=== PATIENT | male | born 1950 | race Caucasian/White ===

== ENCOUNTER → 2018-11-25 | Day surgery (SDC) | payer MEDICARE ==
[2018-11-20 12:47] LABS: BASOPHILS # (AUTO) 0.1 (0.0-0.1); BASOPHILS % 0.9 % (0.0-1.0); EOSINOPHILS # (AUTO) 0.3 (0.0-0.4); EOSINOPHILS % 3.5 % (0.0-6.0); HEMATOCRIT 42.7 % (38.2-49.6); HEMOGLOBIN 14.1 g/dL (14.0-18.0); LYMPHOCYTES # (AUTO) 2.1 (1.0-3.2); LYMPHOCYTES % 28.7 % (18.0-39.1); MEAN CORPUSCULAR HEMOGLOBIN 29.1 pg (28-32); MEAN CORPUSCULAR VOLUME 88.2 fL (81-99); MONOCYTES # (AUTO) 0.7 (0.2-0.8); MONOCYTES % 9.6 % (4.4-11.3); NEUTROPHILS # (AUTO) 4.2 (2.1-6.9); PLATELET COUNT 247 x10e3/uL (140-360); RED BLOOD COUNT 4.84 x10e6/uL (4.3-5.7); RED CELL DISTRIBUTION WIDTH 14.1 % (11.7-14.4)
[~2018-11-25] MED LIST: AMLODIPINE BESYL5 MG PO; ASPIRIN81 MG PO; ATORVASTATIN CA20 MG PO; BENZOCAINE/TETRACAINE/BUTAMBEN AERO SPRAY 56 GM CAN ONE; CLOPIDOGREL75 MG PO; FLOMAX0.4 MG PO; GLUCAGON FOR INJ 1 MG VIAL ONE; HYDROXYCHLOROQ200 MG PO; LEVOTHYROXINE100 MC1 PO; LIDOCAINE HCL 2% LOCAL INJ 5 ML SDV VIAL INJ ONE; METOPROLOL PO; PROPOFOL IV EMULSION 10 MG/ML 50 ML VIAL ONE; SERTRALINE HCL50 MG PO; ULTRAM50 MG PO
--- OUTSIDE RECORDS SUMMARY | 2018-11-25 07:42 | XMS REPORT ---
Author Author Zara Lo Organization e[employer] Address Unknown Phone Unavailable Care Team Providers Care Monitor Car Operator Name Role Phone Zara Lo CP Unavailable Allergies No Known Allergies Problems Problem Type Condition Code Onset Dates Condition Status Problem End stage renal disease N18.6 Active Problem CKD (chronic kidney disease) stage 1, GFR 90 ml/min or greater N18.1 Active Problem Rheumatoid arthritis without rheumatoid factor, unspecified ankle and foot M06.079 Active Medications Medication Code System Code Instructions Start Date End Date Status Dosage Hydroxychloroquine Sulfate [facility] 45410094084 200 MG Orally Once a day Active 2 tabs Results No Known Results Summary Purpose eClinicalWorks Submission
--- OUTSIDE RECORDS SUMMARY | 2018-11-25 07:42 | XMS REPORT ---
Author Author Zara Lo [facility] eClinicalWorks Address Unknown Phone Unavailable Care Team Providers Care Hammer Smith Name Role Phone Zara Lo CP Unavailable Allergies, Adverse Reactions, Alerts Substance Reaction Event Type N.K.D.A. Info Not Available Non Drug Allergy Problems Problem Type Condition Code Onset Dates Condition Status Assessment CKD (chronic kidney disease) stage 1, GFR 90 ml/min or greater N18.1 Active Assessment Pain, joint, multiple sites M25.50 Active Assessment Counseling NOS Z71.9 Active Problem End stage renal disease N18.6 Active Problem CKD (chronic kidney disease) stage 1, GFR 90 ml/min or greater N18.1 Active Problem Rheumatoid arthritis without rheumatoid factor, unspecified ankle and foot M06.079 Active Assessment Pain of left hand M79.642 Active Assessment Pain in right hand M79.641 Active Assessment Rheumatoid arthritis without rheumatoid factor, unspecified ankle and foot M06.079 Active Medications Medication Code System Code Instructions Start Date End Date Status Dosage Pantoprazole Sodium [facility] 84886263904 40 MG Orally Once a day Active 1 tablet Amlodipine Besylate ND 58727394847 2.5 MG Orally Once a day Active 1 tablet Tramadol HCl ND 16550839394 50 MG Orally bid July 03, 2018 Oct 31, 2018 Active 1 tablet as needed Hydroxychloroquine Sulfate ND 72663811794 200 MG Orally Once a day Active 2 tabs Levothyroxine Sodium ND 78397798582 100 MCG Orally Once a day Active 1 tablet on an empty stomach in the morning Atorvastatin Calcium ND 47817340567 40 MG Orally Once a day Active 1 tablet Glimepiride ND 24125987551 2 MG Orally Once a day Active 1 tablet with breakfast or the first main meal of the day Humulin 70/30 [facility] 98704421251 (70-30) 100 UNIT/ML Subcutaneous Active not defined Hydroxychloroquine Sulfate ND 84294841671 200 MG Orally Once a day Active 2 tabs Clopidogrel Bisulfate ND 63778059931 75 MG Orally Once a day Active 1 tablet Aspirin [facility] 14830459996 81 MG Orally Once a day Active 1 tablet Tamsulosin HCl [facility] 37882554057 0.4 MG Orally Once a day Active 1 capsule Metoprolol Succinate ER [facility] 03073897201 25 MG Orally Once a day Active 1 tablet Vital Signs Date/Time: July 03, 2018 Height 66 in Blood Pressure Diastolic 55 mm Hg Blood Pressure Systolic 113 mm Hg Weight 176.8 lbs Results No Known Results Summary Purpose eClinicalWorks Submission
--- OUTSIDE RECORDS SUMMARY | 2018-11-25 07:42 | XMS REPORT ---
Author Author Zara Lo [facility] eClinicalWorks Address Unknown Phone Unavailable Care Team Providers Care Route Salesman And Driver Name Role Phone Zara Lo CP Unavailable Allergies, Adverse Reactions, Alerts Substance Reaction Event Type N.K.D.A. Info Not Available Non Drug Allergy Problems Problem Type Condition Code Onset Dates Condition Status Assessment CKD (chronic kidney disease) stage 1, GFR 90 ml/min or greater N18.1 Active Problem End stage renal disease N18.6 Active Problem CKD (chronic kidney disease) stage 1, GFR 90 ml/min or greater N18.1 Active Problem Rheumatoid arthritis without rheumatoid factor, unspecified ankle and foot M06.079 Active Assessment Pain, joint, multiple sites M25.50 Active Assessment Counseling NOS Z71.9 Active Assessment Pain of left hand M79.642 Active Assessment Pain in right hand M79.641 Active Medications Medication Code System Code Instructions Start Date End Date Status Dosage Atorvastatin Calcium ND 88135182592 40 MG Orally Once a day Active 1 tablet Pantoprazole Sodium ND 24507621645 40 MG Orally Once a day Active 1 tablet Aspirin ND 35192175516 81 MG Orally Once a day Active 1 tablet Humulin 70/30 [facility] 72616725621 (70-30) 100 UNIT/ML Subcutaneous Active not defined Amlodipine Besylate ND 09568747503 2.5 MG Orally Once a day Active 1 tablet Glimepiride ND 39532927892 2 MG Orally Once a day Active 1 tablet with breakfast or the first main meal of the day Clopidogrel Bisulfate ND 32919240164 75 MG Orally Once a day Active 1 tablet PredniSONE ND 30386496212 5 mg Orally Once a day Nov 26, 2017 Active 1 tab(s) with food as needed Tamsulosin HCl ND 27872122674 0.4 MG Orally Once a day Active 1 capsule Levothyroxine Sodium ND 93091938297 100 MCG Orally Once a day Active 1 tablet on an empty stomach in the morning Metoprolol Succinate ER ND 13900605425 25 MG Orally Once a day Active 1 tablet Vital Signs Date/Time: Nov 26, 2017 Height 66 in Blood Pressure Diastolic 91 mm Hg Blood Pressure Systolic 149 mm Hg Weight 177.6 lbs Results No Known Results Summary Purpose eClinicalWorks Submission
--- OUTSIDE RECORDS SUMMARY | 2018-11-25 07:42 | XMS REPORT ---
Author Author Zara Lo Organization [employer] Address Unknown Phone Unavailable Care Team Providers Care Sales And Distribution Clerk Name Role Phone Zara Lo CP Unavailable Allergies No Known Allergies Problems Problem Type Condition Code Onset Dates Condition Status Problem End stage renal disease N18.6 Active Problem CKD (chronic kidney disease) stage 1, GFR 90 ml/min or greater N18.1 Active Problem Rheumatoid arthritis without rheumatoid factor, unspecified ankle and foot M06.079 Active Medications No Known Medications Results No Known Results Summary Purpose eClinicalWorks Submission
--- OUTSIDE RECORDS SUMMARY | 2018-11-25 07:42 | XMS REPORT | Continuity of Care Document ---
Author Author LimeTray Address Unknown Phone Unavailable Care Team Providers Care Pharmacology Associate Name Role Phone Qriket Information shipbeat Unavailable Unavailable Problems Problem Status Onset Date Classification Date Reported Comments Source End stage renal disease Active Problem 07/26/2018 Zara Najam CKD (chronic kidney disease) stage 1, GFR 90 ml/min or greater Active Diagnosis 07/26/2018 Zara Najam Rheumatoid arthritis without rheumatoid factor, unspecified ankle and foot Active Problem 07/26/2018 Zara Najam Pain, joint, multiple sites Active Diagnosis 07/26/2018 Zara Najam Counseling NOS Active Diagnosis 07/26/2018 Zara Najam Pain of left hand Active Diagnosis 07/26/2018 Zara Najam Pain in right hand Active Diagnosis 07/26/2018 Zara Najam Medications Medication Details Route Status Patient Instructions Ordering Provider Order Date Source Hydroxychloroquine Sulfate 2 tabs Orally Active 200 MG Orally Once a day [facility] 10/11/2018 Zara Najam Tramadol HCl 1 tablet as needed Orally Active 50 MG Orally bid [facility] 07/03/2018 Zara Najam Tramadol HCl 1 tablet as needed Orally Active 50 MG Orally bid [facility] 06/19/2018 Zara Najam PredniSONE 1 tab(s) with food as needed Orally Active 5 mg Orally Once a day [facility] 12/11/2017 Zara Najam Tramadol HCl 1 tablet as needed Orally Active 50 MG Orally bid [facility] 12/11/2017 Zara Najam Hydroxychloroquine Sulfate 2 tabs Orally Active 200 MG Orally Once a day [facility] 12/11/2017 Zara Najam PredniSONE 1 tab(s) with food as needed Orally Active 5 mg Orally Once a day [facility] 11/26/2017 Zara Najam Atorvastatin Calcium 1 tablet Orally Active 40 MG Orally Once a day [facility] Pantoprazole Sodium 1 tablet Orally Active 40 MG Orally Once a day [facility] Najam Aspirin 1 tablet Orally Active 81 MG Orally Once a day Erendira Zara Lo Humulin 70/30 not defined Subcutaneous Active (70-30) 100 UNIT/ML Subcutaneous Erendira Zara Lo Amlodipine Besylate 1 tablet Orally Active 2.5 MG Orally Once a day Erendira Zara Lo Glimepiride 1 tablet with breakfast or the first main meal of the day Orally Active 2 MG Orally Once a day Teresita Lo Clopidogrel Bisulfate 1 tablet Orally Active 75 MG Orally Once a day Erendira Zara Krishna Tamsulosin HCl 1 capsule Orally Active 0.4 MG Orally Once a day Erendira Zara Krishna Levothyroxine Sodium 1 tablet on an empty stomach in the morning Orally Active 100 MCG Orally Once a day Erendira Zara Krishna Metoprolol Succinate ER 1 tablet Orally Active 25 MG Orally Once a day Erendira Zara Krishna Hydroxychloroquine Sulfate 2 tabs Orally Active 200 MG Orally Once a day Erendira Zara Krishna Hydroxychloroquine Sulfate 2 tabs Orally Active 200 MG Orally Once a day Erendira Zara Lo Allergies, Adverse Reactions, Alerts Substance Category Reaction Severity Reaction type Status Date Reported Comments Source N.K.D.A. Adverse Reaction Info Not Available Adverse Reaction Active 07/03/2018 Zara Lo Immunizations No Data Provided for This Section Results No Data Provided for This Section Pathology Reports No Data Provided for This Section Diagnostic Reports No Data Provided for This Section Consultation Notes No Data Provided for This Section Discharge Summaries No Data Provided for This Section History and Physicals No Data Provided for This Section Vital Signs Vital Sign Value Date Comments Source Height 66 07/03/2018 Zara Najam Diastolic (mm Hg) 55 07/03/2018 Zara Najam Systolic (mm Hg) 113 07/03/2018 Zara Nablossomm Weight 176.8 07/03/2018 Zara Najam Height 66 02/19/2018 Zara Najam Diastolic (mm Hg) 64 02/19/2018 Zara Najam Systolic (mm Hg) 113 02/19/2018 Zara Nablossomm Weight 177.4 02/19/2018 Zara Najam Height 66 12/11/2017 Zara Najam Diastolic (mm Hg) 73 12/11/2017 Zara Najam Systolic (mm Hg) 129 12/11/2017 Zara Lo Weight 174.6 12/11/2017 Zara Najuan daniel Height 66 11/26/2017 Zara Nablossomm Diastolic (mm Hg) 91 11/26/2017 Zara Nablossomm Systolic (mm Hg) 149 11/26/2017 Zaraandreea Lo Weight 177.6 11/26/2017 Zara Lo Encounters No Data Provided for This Section Procedures No Data Provided for This Section Assessment and Plan No Data Provided for This Section Plan of Care No Data Provided for This Section Social History No Data Provided for This Section Family History No Data Provided for This Section Advance Directives No Data Provided for This Section Functional Status No Data Provided for This Section
--- OUTSIDE RECORDS SUMMARY | 2018-11-25 07:42 | XMS REPORT ---
Author Author Zara Lo [facility] eClinicalWorks Address Unknown Phone Unavailable Care Team Providers Care Senior Technical Business Analyst Name Role Phone Zara Lo CP Unavailable [...] Instructions Start Date End Date Status Dosage Humulin 70/[address] [facility] 21216747131 (70-30) 100 UNIT/ML Subcutaneous Active not defined Aspirin ND 14349286987 81 MG Orally Once a day Active 1 tablet Amlodipine Besylate ND 86065351357 2.5 MG Orally Once a day Active 1 tablet Pantoprazole Sodium ND 60823991371 40 MG Orally Once a day Active 1 tablet Glimepiride ND 87019523521 2 MG Orally Once a day Active 1 tablet with breakfast or the first main meal of the day Tamsulosin HCl ND 98247681068 0.4 MG Orally Once a day Active 1 capsule Hydroxychloroquine Sulfate ND 12311439152 200 MG Orally Once a day Active 2 tabs Atorvastatin Calcium ND 86248313886 40 MG Orally Once a day Active 1 tablet Levothyroxine Sodium ND 92001973814 100 MCG Orally Once a day Active 1 tablet on an empty stomach in the morning Metoprolol Succinate ER ND 26784887669 25 MG Orally Once a day Active 1 tablet Clopidogrel Bisulfate [facility] 00744484136 75 MG Orally Once a day Active 1 tablet Tramadol HCl [facility] 08639829397 50 MG Orally bid June 19, 2018 Active 1 tablet as needed Vital Signs Date/Time: Feb 19, 2018 Height 66 in Blood Pressure Diastolic 64 mm Hg Blood Pressure Systolic 113 mm Hg Weight 177.4 lbs Results No Known Results Summary Purpose eClinicalWorks Submission
--- OUTSIDE RECORDS SUMMARY | 2018-11-25 07:43 | XMS REPORT ---
Author Author Zara Lo [facility] eClinicalWorks Address Unknown Phone Unavailable Care Team Providers Care Regional Account Manager Name Role Phone Zara Lo CP Unavailable Allergies, Adverse Reactions, Alerts Substance Reaction Event Type N.K.D.A. Info Not Available Non Drug Allergy Problems Problem Type Condition Code Onset Dates Condition Status Assessment Counseling NOS Z71.9 Active Assessment CKD (chronic kidney disease) stage 1, GFR 90 ml/min or greater N18.1 Active Problem End stage renal disease N18.6 Active Problem CKD (chronic kidney disease) stage 1, GFR 90 ml/min or greater N18.1 Active Problem Rheumatoid arthritis without rheumatoid factor, unspecified ankle and foot M06.079 Active Assessment Pain in right hand M79.641 Active Assessment Pain, joint, multiple sites M25.50 Active Assessment Rheumatoid arthritis without rheumatoid factor, unspecified ankle and foot M06.079 Active Assessment Pain of left hand M79.642 Active Medications Medication Code System Code Instructions Start Date End Date Status Dosage Aspirin [facility] 26003175980 81 MG Orally Once a day Active 1 tablet Glimepiride ND 79381370062 2 MG Orally Once a day Active 1 tablet with breakfast or the first main meal of the day Levothyroxine Sodium ND 14839005539 100 MCG Orally Once a day Active 1 tablet on an empty stomach in the morning Metoprolol Succinate ER ND 67428125742 25 MG Orally Once a day Active 1 tablet Tamsulosin HCl ND 20709941046 0.4 MG Orally Once a day Active 1 capsule PredniSONE ND 27539222830 5 mg Orally Once a day Dec 11, 2017 Inactive 1 tab(s) with food as needed Clopidogrel Bisulfate ND 82085309867 75 MG Orally Once a day Active 1 tablet Tramadol HCl ND 16347480006 50 MG Orally bid Dec 11, 2017 Active 1 tablet as needed Hydroxychloroquine Sulfate ND 15699784495 200 MG Orally Once a day Dec 11, 2017 Active 2 tabs Atorvastatin Calcium ND 01072260015 40 MG Orally Once a day Active 1 tablet Pantoprazole Sodium [facility] 52921387728 40 MG Orally Once a day Active 1 tablet Humulin 70/30 [facility] 33969898823 (70-30) 100 UNIT/ML Subcutaneous Active not defined Amlodipine Besylate [facility] 35671651170 2.5 MG Orally Once a day Active 1 tablet Vital Signs Date/Time: Dec 11, 2017 Height 66 in Blood Pressure Diastolic 73 mm Hg Blood Pressure Systolic 129 mm Hg Weight 174.6 lbs Results No Known Results Summary Purpose eClinicalWorks Submission
--- OUTSIDE RECORDS SUMMARY | 2018-11-25 07:43 | XMS REPORT ---
Author Author Zara Lo Organization eClinicalWorks Address Unknown Phone Unavailable Care Team Providers Care Magnet Maker Name Role Phone Zara Lo CP Unavailable [...] Date End Date Status Dosage Hydroxychloroquine Sulfate [facility] 04240263796 200 MG Orally Once a day October 11, 2018 Active 2 tabs Results No Known Results Summary Purpose eClinicalWorks Submission
[2018-11-25 11:50] VITALS: BP 158/78
== END | disposition home or self-care (01) ==
LOC: OR 07:32
PROVIDERS: ATTEND Internal Medicine Gastroenterology
DX: K29.70 Gastritis, unspecified, without bleeding (principal); K31.7 Polyp of stomach and duodenum; K57.30 Diverticulosis of large intestine without perforation or abscess without bleeding; K64.8 Other hemorrhoids; K44.9 Diaphragmatic hernia without obstruction or gangrene; K59.03 Drug induced constipation; J44.9 Chronic obstructive pulmonary disease, unspecified; I25.10 Atherosclerotic heart disease of native coronary artery without angina pectoris; E78.5 Hyperlipidemia, unspecified; I10 Essential (primary) hypertension; Z88.6 Allergy status to analgesic agent; Z01.812 Encounter for preprocedural laboratory examination; Z79.82 Long term (current) use of aspirin; Z79.02 Long term (current) use of antithrombotics/antiplatelets; Z95.5 Presence of coronary angioplasty implant and graft; Z86.73 Personal history of transient ischemic attack (TIA), and cerebral infarction without residual deficits
CPT/HCPCS: 36415; 43239; 45378; 85025; J1610; J2001; J2704